=== PATIENT | male | born 1970 | race African-American/Black ===

== ENCOUNTER 2019-09-13 09:29 | Emergency (ER) | payer OTHER ==
[2019-09-13 10:16] VITALS: BMI 34.1
--- NOTE | 2019-09-13 10:37 | PDOC ---
History of Present Illness - General Chief Complaint: Lightheaded Stated Complaint: COVID 19 SYMPTOMS Time Seen by Provider: 09/13/19 09:36 - History of Present Illness Initial Comments: 09/13/19 10:32 49 yo M no PMH, presenting with lightheadedness. 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 Reports that he began having generalized malaise and chills yesterday afternoon, called his doctor, and took 2 extra strength acetaminophen. This morning he was feeling better, but around noon, developed sudden onset lightheadedness "like I might pass out" and became nauseous without vomiting. Patient poured water on himself with improvement, and now feels back to baseline. Denies CP, SOB, abd pain, [place]. Endorses lightheadedness and nausea without vomiting. Past History - Past Medical History Allergies/Adverse Reactions: Allergies Allergy/AdvReac Type Severity Reaction Status Date / Time No Known Allergies Allergy Verified 09/13/19 09:41 Home Medications: Ambulatory Orders NK [No Known Home Medication] 09/13/19 COPD: No - Psycho Social/Smoking Cessation Hx Smoking History: Never smoked Hx Alcohol Use: No Drug/Substance Use Hx: No Review of Systems - Review of Systems Comments:: 09/13/19 10:34 GENERAL/CONSTITUTIONAL: endorses chills and generalized malaise. Denies diaphoresis, loss of appetite, weight change HEAD, EYES, EARS, NOSE AND THROAT: denies rhinorrhea, nasal congestion, throat pain, throat swelling, difficulty swallowing, mouth swelling, ear pain, eye pain, visual changes NEUROLOGIC: denies headache, focal weakness or paresthesias, dizziness, unsteady gait, seizure, mental status changes, bladder or bowel incontinence CARDIOVASCULAR: endorses lightheadedness. Denies chest pain, syncope, palpitations, irregular heart rate, peripheral edema RESPIRATORY: denies cough, shortness of breath, dyspnea with exertion, orthopnea, wheezing, stridor, hemoptysis GASTROINTESTINAL: denies abdominal pain, abdominal distension, nausea, vomiting, diarrhea, constipation, melena, hematochezia GENITOURINARY: denies dysuria, frequency, urgency, hesitancy, hematuria, flank pain, genital pain MUSCULOSKELETAL: denies myalgia, arthralgia, joint swelling, back pain, neck pain SKIN: denies rash, itching, pallor HEMATOLOGIC/IMMUNOLOGIC: denies easy bleeding, easy bruising, lymphadenopathy, frequent infections ENDOCRINE: denies unexplained weight gain, unexplained weight loss, heat intolerance, cold intolerance PSYCHIATRIC: denies anxiety, depression, suicidal or homicidal ideation, hallucinations *Physical Exam - Vital Signs Last Vital Signs Temp Pulse Resp BP Pulse Ox 98.4 F 75 20 133/90 99 09/13/19 09:30 09/13/19 09:30 09/13/19 09:30 09/13/19 09:30 09/13/19 09:30 - Physical Exam 09/13/19 10:35 Gen: well-developed, well-nourished, NAD Neuro: AAOX4, CN II-XII intact, FTN intact, EOMI, PERRLA, 5/5 strength, SILT HEENT: atraumatic, normocephalic Neck: trachea midline, supple CV: regular rate, regular rhythm, no murmurs, rubs, or gallops Pulm: CTA b/l, no wheezing Abd: soft, non-distended, non-tender MSK: full ROM, intact pulses Extr: no edema, no deformities Skin: warm, dry ED Treatment Course - LABORATORY CBC & Chemistry Diagram: 09/13/19 10:43 09/13/19 10:43 Medical Decision Making - Medical Decision Making 09/13/19 9:36 As healthcare worker with chills, 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 Will also r/o electrolyte abnormalities, cardiac etiologies. - CBC, CMP - coags - EKG, CXR - COVID/flu/respiratory virus panel - likely dc for 14 day self-quarantine 09/13/19 10:38 EKG normal sinus with 1st degree AV block, MA 214, QRS 82, QTc 395 09/13/19 11:38 CXR without acute abnormality. Flu negative. WBC low at 3.7, otherwise unremarkable. Will dc with self-quarantine instructions. Discharge - Discharge Information Problems reviewed: Yes Clinical Impression/Diagnosis: Lightheadedness, Suspected 2019 novel coronavirus infection Condition: Stable Disposition: HOME - Admission No - Follow up/Referral - Patient Discharge Instructions Patient Printed Discharge Instructions: [facility]-Coronavirus Instructions, [facility] COVID-19 Isolation Protocol Additional Instructions: You were seen with lightheadedness. Your labs, EKG, and chest X-ray did not show any concerning findings. However, it is important that you self-quarantine for 14 days. You may come into work if you are not running a fever, but you must keep a mask on at all times. Follow up with your primary care doctor. Return to the ER if you develop new or worsening symptoms. - Post Discharge Activity Work/Back to School Note: Back to Work
[2019-09-13 10:56] LABS: BASO % 0.6 % (0-2.0); EOS % 0.1 % (0-4.5); HEMATOCRIT 41.2 % (35.4-49); HEMOGLOBIN 13.9 GM/dL (11.7-16.9); LYMPH % 14.6 % (8-40); MCH 31.6 pg (25.7-33.7); MCHC 33.8 g/dl (32.0-35.9); MEAN CELL VOLUME 93.7 fl (80-96); MEAN PLT VOLUME 9.4 fl (7.5-11.1); MONO % 7.6 % (3.8-10.2); NEUT % 77.1 % (42.8-82.8); PLATELET COUNT 77 K/MM3 (134-434); RDW 14.5 % (11.9-15.9); WHITE BLOOD COUNT 3.7 K/mm3 (4.0-10.0)
[2019-09-13] MEDS ORDERED: SODIUM CHLORIDE 0.9% 1000 ML INFUS.BAG IV ONE (11:01)
--- NOTE | 2019-09-13 11:03 | PDOC ---
Documentation entered by Margarita Ambriz SCRIBE, acting as scribe for Silvina Castillo DO. Silvina Castillo DO: This documentation has been prepared by the Katina pedroza Brenda, SCRIBE, under my direction and personally reviewed by me in its entirety. I confirm that the documentation accurately reflects all work, treatment, procedures, and medical decision making performed by me. Attending Attestation - Resident Resident Name: JonesMessibert - ED Attending Attestation I have performed the following: I have examined & evaluated the patient, The case was reviewed & discussed with the resident, I agree w/resident's findings & plan, Exceptions are as noted - HPI HPI: 09/13/19 10:09 The patient is a 49 year old male, with a significant PMH of who presents to the emergency department with acute lightheadedness. Patient rports that yesterday in the afternoon he began to feel malaised and had some chills, he then took 2 extra strength acetaminophen, after calling his doctor. Patient endorses feeling better this morning, however he began to suddenly feel lightheaded and nauseas. The patient denies chest pain, shortness of breath. Denies fever, chills, vomiting, diarrhea and constipation. Denies dysuria, frequency, urgency and hematuria. Allergies: NKA Social history: No reported hx of tobacco use, alcohol use or illicit drug use. - Physicial Exam PE: 09/13/19 10:09 GENERAL: Awake, alert, and fully oriented, in no acute distress HEAD: No signs of trauma EYES: PERRLA, EOMI, sclera anicteric, conjunctiva clear ENT: Auricles normal inspection, hearing grossly normal, nares patent, oropharynx clear without exudates. Moist mucosa NECK: Normal ROM, supple, no lymphadenopathy, JVD, or masses LUNGS: Breath sounds equal, clear to auscultation bilaterally. No wheezes, and no crackles HEART: Regular rate and rhythm, normal S1 and S2, no murmurs, rubs or gallops ABDOMEN: Soft, nontender, normoactive bowel sounds. No guarding, no rebound. No masses EXTREMITIES: Normal range of motion, no edema. No clubbing or cyanosis. No cords, erythema, or tenderness NEUROLOGICAL: Cranial nerves II through XII grossly intact. Normal speech, normal gait SKIN: Warm, Dry, normal turgor, no rashes or lesions noted. - Medical Decision Making 09/13/19 11:01 I, Dr. Silvina Castillo, DO, attest that this document has been prepared under my direction and personally reviewed by me in its entirety. I further attest, that it accurately reflects all work, treatment, procedures and medical decision-making performed by me. 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 -took tylenol last night, no coughing, has been in the hospital and exposed to COVID -pt today was afebrile when he came to work, but felt lightheaded and dizzy while on break -[facility] called and pt brought to the ER -denies cough, sob, denies abd pain, denies n/v/d, no cp -pt denies jacobson -states he felt achy last night, but better today -no syncope -will send labs, ekg, cxr -will swab for self virus and flu -will hydrate -most likely dc to home 09/13/19 11:03 cxr clear 09/13/19 11:19 flu and rsv neg 09/13/19 11:48 pt with low plts labs reviewed and stable pending EKG 09/13/19 11:53 pt feeling better stable for dc to home with precautions for quarantine and instructions to return to work Heart Score/ECG Review - ECG Intrepretation Comment:: 09/13/19 11:53 sinus at 71, 1st degree av block, nl axis, no acute st/t wave findings Discharge - Discharge Information Problems reviewed: Yes Clinical Impression/Diagnosis: Lightheadedness, Suspected 2019 novel coronavirus infection Condition: Stable Disposition: HOME - Admission No - Follow up/Referral - Patient Discharge Instructions - Post Discharge Activity
[2019-09-13 11:04] LABS: INR 1.18 (0.83-1.09)
[2019-09-13 11:31] LABS: ALBUMIN 3.5 g/dl (3.4-5.0); ALK PHOS 72 U/L (45-117); ANION GAP 8 MMOL/L (8-16); BILIRUBIN,TOTAL 0.4 mg/dL (0.2-1); BLOOD UREA NITROGEN 13.1 mg/dL (7-18); CALCIUM 8.5 mg/dL (8.5-10.1); CHLORIDE 108 mmol/L (98-107); CO2 25 mmol/L (21-32); CREATININE 1.3 mg/dL (0.55-1.3); GLUCOSE,RANDOM 106 mg/dL (74-106); POTASSIUM 3.5 mmol/L (3.5-5.1); SGOT/AST 31 U/L (15-37); SGPT/ALT 42 U/L (13-61); SODIUM 142 mmol/L (136-145); TOT PROT 6.8 g/dl (6.4-8.2)
[2019-09-13 12:09] VITALS: BP 128/78; PULSE 73; TEMP 98.2
--- NOTE | 2019-09-14 18:16 | EKG ---
Test Reason : Blood Pressure : / mmHG Vent. Rate : 071 BPM Atrial Rate : 071 BPM P-R Int : 214 ms QRS Dur : 082 ms QT Int : 364 ms P-R-T Axes : 062 045 044 degrees QTc Int : 395 ms SINUS RHYTHM WITH 1ST DEGREE A-V BLOCK NONSPECIFIC T WAVE ABNORMALITY ABNORMAL ECG NO PREVIOUS ECGS AVAILABLE Confirmed by JEOVANY COCHRAN MD ([id number]) on 09/14/2019 6:16:08 PM Referred By: Confirmed By:JEOVANY COCHRAN MD
== END 2019-09-13 12:07 | disposition home or self-care (01) ==
LOC: JER 09:29
DX: R42 Dizziness and giddiness (principal)
CPT/HCPCS: 36415; 71045-TC-FY; 80053; 84484; 85025; 85610; 85730; 87804; 87807; 93005; 93010; 99285-25; J7030; U0002

== ENCOUNTER 2020-10-06 08:18 | Emergency (ER) | payer OTHER ==
[2020-10-06 08:24] VITALS: BP 126/80; PULSE 64; TEMP 98.2; BMI 31.9
[2020-10-06] MEDS ORDERED: TETRACAINE 0.5% HCL 0.6ML DROPPER.BOTTLE OS ONE (08:32)
[2020-10-06] MEDS ORDERED: FLUORESCEIN NA 1 EA STRIP OS ONE (08:33)
[2020-10-06] MEDS ORDERED: TETRACAINE 0.5% OPHTH SOLN 2 ML BOTTLE ONE (08:35)
[2020-10-06] MEDS ORDERED: FLUORESCEIN NA 1 EA STRIP ONE (08:36)
== END 2020-10-06 08:50 | disposition home or self-care (01) ==
LOC: JER 08:18
DX: B00.1 Herpesviral vesicular dermatitis (principal)
CPT/HCPCS: 99284-25